=== PATIENT | male | born 1980 | race Caucasian/White ===

== ENCOUNTER 2020-09-25 08:03 | Inpatient (IN) | payer MEDICAID, SELFPAY ==
[2020-09-25 08:05] VITALS: BP 147/89; PULSE 97; RESP 18; TEMP 36.2; O2SAT 95; BMI 30.5
--- NOTE | 2020-09-25 08:17 | W.ED.PSYCH ---
HPI - Psych General: Chief Complaint: Psychiatric Symptoms Stated Complaint: SI Time Seen by Provider: 09/25/20 08:05 History of Present Illness: HPI Narrative: 40-year-old male presents emergency room. He states he last drank less and around 10:00 he was on a drinking celestin had drank 3 bottles of whiskey in 2 days. This began immediately after he got out of rehab for alcoholism. He states he has twice been admitted before for suicidal ideation he is having suicidal thoughts now although he denies having done anything to harm himself or take anything besides drinking. He is not having any shakes or anxiety now. He denies any history of cirrhosis or esophageal varices no hematochezia melena hematemesis coffee-ground emesis. MD complaint: suicidal ideation Duration: constant History of same: Yes Exacerbating factors: alcohol Context: recent alcohol abuse Associated psychiatric symptoms: depression and suicidal ideation Associated symptoms: Deny auditory hallucinations, visual hallucinations, delusions, depression, homicidal ideation, suicidal ideation or racing thoughts Treatments prior to arrival: none If self harm: admits thoughts of self harm Review of Systems Const: Denies: fever(s), chills, body aches, change in appetite, fatigue or malaise ENMT: Denies: throat pain, ear or mastoid pain, nasal discharge or nasal congestion Card: Denies: chest pain, edema, dyspnea on exertion or orthopnea Resp: Denies: dyspnea, productive cough or non-productive cough GI: Denies: abdominal pain, nausea, vomiting, hematemesis, coffee ground emesis, diarrhea, constipation, bloating, hematochezia or melena : Denies: flank pain, dysuria, urinary frequency or urinary urgency Skin/Breast: Denies: rash or pruritus Psych: Denies: depression, visual hallucinations, auditory hallucinations, suicidal ideation or homicidal ideation Physical Exam Const: COMMON NORMALS: no acute distress GENERAL APPEARANCE: cooperative and comfortable ORIENTATION/CONSCIOUSNESS: Yes awake, Yes oriented to person, Yes oriented to place and Yes oriented to time HENMT: COMMON NORMALS: normocephalic, atraumatic, hearing grossly normal bilaterally, external ears normal, EAC's normal, TM's normal bilaterally, Normal nasal mucous membranes and turbinates present, moist oral mucous membranes and oropharynx normal HEAD & SCALP: normocephalic and atraumatic NOSE: Normal nasal mucous membranes and turbinates present EXTERNAL EAR: Yes external ears normal EXTERNAL AUDITORY CANAL: EAC's normal TYMPANIC MEMBRANE: TM's normal bilaterally Eye: COMMON NORMALS: Equal, round and reactive pupils present, EOMs intact bilaterally, conjunctivae normal and no scleral icterus CONJUNCTIVA: Yes conjunctivae normal PUPIL: Yes Equal, round and reactive pupils present Neck/C-Spine: COMMON NORMALS: full ROM, no lymphadenopathy, supple and no JVD Lymph: LYMPHATIC: no lymphadenopathy noted and no lymphedema noted Resp: COMMON NORMALS: normal respiratory effort, No retractions, No use of accessory muscles and clear to auscultation bilaterally AUSCULTATION: clear to auscultation bilaterally Cardio: COMMON NORMALS: no JVD, regular rate, regular rhythm and No murmurs present (Cardio) RATE: regular rate RHYTHM: regular rhythm GI: COMMON NORMALS: Soft to palpation and No hepatosplenomegaly present AUSCULTATION: Yes normoactive bowel sounds PALPATION: Yes Soft to palpation, No Tenderness to palpation present (GI), No Guarding due to palpation present (GI) and Yes No hepatosplenomegaly present Extremity: COMMON NORMALS: normal to inspection, capillary refill normal, no clubbing, cyanosis or edema, no calf tenderness and no pedal edema Neuro: SENSORIUM/ORIENTATION: Yes oriented to person, Yes oriented to place and Yes oriented to time Psych: THOUGHT CONTENT: No delusions Skin: COMMON NORMALS: no rashes or lesions noted GENERAL SKIN EXAM: no rashes or lesions noted MDM - Psych MDM Narrative: Medical decision making narrative: Liver functions normal sugar is rather high. He may need to be monitored for this. Not an acute issue at this time. Will admit for suicidal ideation. He is voluntary. His CIWA score was 10. Question whether or not he drank as much as he claimed given his low normal transaminases. Lab Data: Labs: Lab Results 09/25/20 09/25/20 Range/Units 08:15 08:15 WBC 8.0 (4.0-10.0) 10^3/ uL RBC 5.31 H (4.1-5.3) 10^6/u L Hgb 15.1 (11.7-16.6) g/dL Hct 42.7 (42.0-52.0) % MCV 80.4 (80-94) fL MCH 28.4 (28.0-34.0) pg MCHC 35.4 (30.0-36.0) g/dL RDW 11.9 L (12.1-15.1) % Plt Count 266 (130-400) 10^3/c mm MPV 12.1 H (7.4-10.4) fL Neut % (Auto) 65.6 % Lymph % (Auto) 26.1 % Bandera % (Auto) 7.2 % Eos % (Auto) 0.4 % Baso % (Auto) 0.5 % Neut # (Auto) 5.26 (1.8-7.7) 10^3/u L Lymph # (Auto) 2.1 (0.8-4.8) 10^3/u L Bandera # (Auto) 0.6 (0.2-0.9) 10^3/u L Eos # (Auto) 0.0 (0.0-0.8) 10^3/u L Baso # (Auto) 0.0 (0.0-0.1) 10^3/u L Nucleated RBC % (a uto) 0 % Nucleated RBCs # 0.0 /100WBC Sodium 137 (136-145) mmol/L Potassium 3.7 (3.5-5.1) mmol/L Chloride 99 (98-107) mmol/L Carbon Dioxide 23 (22-29) mmol/L Anion Gap 18.7 (5-19) BUN 15 (6-20) mg/dL Creatinine 0.7 (0.7-1.2) mg/dL GFR Calculation 124.9 (90-130) mL/min Glucose 279 H (65-115) mg/dL Calculated Osmolal ity 295 (285-295) mOsm/k g Calcium 8.5 (8.5-10.5) mg/dL Total Bilirubin 0.5 (0.15-1.2) mg/dL AST 16 (0-40) U/L ALT 22 (0-41) U/L Alkaline Phosphata se 110 (40-130) IU/L Total Protein 7.2 (6.6-8.7) g/dL Albumin 4.4 (3.5-5.2) g/dL Globulin 2.8 (1.3-4.6) g/dL Salicylates < 0.3 L (3-10) mg/dL Acetaminophen < 5.0 L (10-30) ug/mL Discharge Plan Discharge Patient Disposition: Admitted As Inpatient Admit Provider: Joaquin Lanier Clinical Impression: Suicidal ideation, H/O ETOH abuse Condition: Stable Coding Level of Care Code ED Resource Efficiency Manager for Chg Fwd Exam Comprehensive
[2020-09-25 08:27] VITALS: RESP 15
[2020-09-25 08:32] LABS: Basophils % 0.5 %; Eosinophils % 0.4 %; Hematocrit 42.7 % (42.0-52.0); Hemoglobin 15.1 g/dL (11.7-16.6); Lymphocytes # 2.1 10^3/uL (0.8-4.8); Lymphocytes % 26.1 %; Mean Corpuscular HGB Conc 35.4 g/dL (30.0-36.0); Mean Corpuscular Hemoglobin 28.4 pg (28.0-34.0); Mean Corpuscular Volume 80.4 fL (80-94); Mean Platelet Volume 12.1 fL (7.4-10.4); Monocytes # 0.6 10^3/uL (0.2-0.9); Monocytes % 7.2 %; Neutrophils # 5.26 10^3/uL (1.8-7.7); Neutrophils % 65.6 %; Nucleated Red Blood Cells % 0 %; Platelet Count 266 10^3/cmm (130-400); Red Blood Count 5.31 10^6/uL (4.1-5.3); Red Cell Distribution Width 11.9 % (12.1-15.1)
[2020-09-25] MEDS: LORazepam 1 mg Tablet PO (08:32)
[2020-09-25] MEDS: multivitamin therapeutic Tablet 1 TAB PO (08:46)
[2020-09-25 08:52] LABS: Alanine Aminotransferase 22 U/L (0-41); Albumin Level 4.4 g/dL (3.5-5.2); Alkaline Phosphatase 110 IU/L (40-130); Anion Gap 18.7 (5-19); Aspartate Amino Transferase 16 U/L (0-40); Blood Urea Nitrogen 15 mg/dL (6-20); Calcium 8.5 mg/dL (8.5-10.5); Carbon Dioxide 23 mmol/L (22-29); Chloride 99 mmol/L (98-107); Globulin 2.8 g/dL (1.3-4.6); Glomerular Filtration Rate 124.9 mL/min (90-130); Glucose 279 mg/dL (65-115); Osmolality Calculated 295 mOsm/kg (285-295); Potassium 3.7 mmol/L (3.5-5.1); Sodium 137 mmol/L (136-145); Total Bilirubin 0.5 mg/dL (0.15-1.2); Total Protein 7.2 g/dL (6.6-8.7)
[2020-09-25] MEDS: thiamine 100 mg Tablet PO (09:04)
[2020-09-25] MEDS: folic acid 1 mg Tablet PO (09:04)
[2020-09-25 09:07] LABS: Acetaminophen < 5.0 ug/mL (10-30); Salicylate < 0.3 mg/dL (3-10)
--- NOTE | 2020-09-25 09:30 | PC.PHAR ---
PT STATES HE TAKES CARE OF HIS OWN MEDICATIONS-PT STATES HE WAS TAKING METFORMIN 1000 MG PO BID-PT STATES HE STOP TAKING A WEEK AGO-EXT MED HISTORY SHOWS LAST FILLED ON 05/11/2020 30D/S-EXT MED HISTORY ALSO SHOWS ZUBSOLV 5.7-1.4MG BID ON 05/11/2020 15D/S PT STATES HE IS NO LONGER TAKING
[2020-09-25 10:27] VITALS: RESP 15; TEMP 36.2; O2SAT 95
[2020-09-25 14:00] VITALS: BP 124/85; PULSE 98; RESP 20; TEMP 36.6; O2SAT 95
[2020-09-25 17:20] VITALS: BP 124/85; PULSE 98; RESP 20; TEMP 36.6; O2SAT 95
[2020-09-25] MEDS: hyDROXYzine 25 mg Capsule 50 MG PO (17:28)
--- NOTE | 2020-09-25 17:28 | PC.NURSE ---
PRN VISTARIL/ANXIETY Patient at nurses station reports increased anxiety. PRN Vistaril 50mg given at this time. Will monitor for effectiveness.
[2020-09-25 20:13] VITALS: BP 147/82; PULSE 85; RESP 18; TEMP 36.6; O2SAT 97
[2020-09-26 06:00] VITALS: RESP 16
--- NOTE | 2020-09-26 06:25 | PC.NURSE ---
Patient refused vitals. Respirations were taken.
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
[2020-09-26] MEDS: thiamine 100 mg Tablet PO (08:22)
[2020-09-26] MEDS: multivitamin therapeutic Tablet 1 TAB PO (08:22)
[2020-09-26] MEDS: folic acid 1 mg Tablet PO (08:22)
[2020-09-26] MEDS: hyDROXYzine 25 mg Capsule 50 MG PO ×2 (11:36→20:34)
--- NOTE | 2020-09-26 11:38 | PC.NURSE ---
PRN VISTARIL Patient presented to nurses station requesting medication for anxiety. Given 50 mg Vistaril po.
[2020-09-26 13:41] VITALS: BP 152/97; PULSE 92; RESP 18; TEMP 37.2; O2SAT 97
[2020-09-26] MEDS: propranolol 20 mg Tablet PO ×2 (13:42→20:32)
[2020-09-26] MEDS: trazodone 50 mg Tablet PO (20:33)
[2020-09-26 20:58] VITALS: BP 140/90; PULSE 84; RESP 17; TEMP 37.3; O2SAT 94
[2020-09-26] MEDS: OLANZapine 5 mg ODT PO (22:06)
--- NOTE | 2020-09-26 22:07 | PC.NURSE ---
The patient came to the nurse's station. The patient said he can't sleep. Reported he is tossing and turning. He received Vistaril and Trazodone earlier at 2033. The patient said, I can't sleep. I am feeling angry and agitated. Zyprexa offered and patient agreeable. Patient also requested snack and was given a sandwich.
[2020-09-27] MEDS: propranolol 20 mg Tablet PO ×2 (07:54→13:28)
[2020-09-27] MEDS: multivitamin therapeutic Tablet 1 TAB PO (07:54)
[2020-09-27] MEDS: thiamine 100 mg Tablet PO (07:54)
[2020-09-27] MEDS: folic acid 1 mg Tablet PO (07:54)
[2020-09-27 12:35] LABS: Glucose Point of Care 464 mg/dL (70-110)
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
--- NOTE | 2020-09-27 13:05 | PC.NURSE ---
Blood Sugar Patient refused to re check his blood sugar even though its critical. He refused to take metformin and insulin. He declined any medications at discharge. Patient educated on the risks of blood sugars not being treated.
[2020-09-27 13:35] VITALS: BP 140/90; PULSE 84; RESP 17; TEMP 37.3; O2SAT 94
== END 2020-09-27 18:25 | disposition home or self-care (01) | DRG 881 ==
LOC: ER 09:18 → NP 09:26
PROVIDERS: Admitting Provider Psychiatry & Neurology Psychiatry; Emergency Provider Family Medicine; Visit Provider Psychiatry & Neurology Psychiatry
DX: F32.9 Major depressive disorder, single episode, unspecified (principal); F10.20 Alcohol dependence, uncomplicated; R45.851 Suicidal ideations; E66.9 Obesity, unspecified; Z68.30 Body mass index [BMI] 30.0-30.9, adult; E11.9 Type 2 diabetes mellitus without complications; F17.210 Nicotine dependence, cigarettes, uncomplicated; Z79.84 Long term (current) use of oral hypoglycemic drugs; Z81.8 Family history of other mental and behavioral disorders; Z81.4 Family history of other substance abuse and dependence
CPT/HCPCS: 36416; 80053; 80307; 82962; 85025; 96372; 99285; J3411